=== PATIENT | male | born 1945 | race Caucasian/White ===

== ENCOUNTER 2020-05-14 23:06 | Emergency (ER) | payer MEDICARE ==
[2020-05-14] MEDS ORDERED: Amoxicillin/Potassium Clav 875 MG TAB ONE (23:26)
== END 2020-05-14 23:32 | disposition home or self-care (01) ==
LOC: BURERS 23:06
DX: H60.92 Unspecified otitis externa, left ear (principal); I10 Essential (primary) hypertension; E11.9 Type 2 diabetes mellitus without complications; Z79.4 Long term (current) use of insulin; Z79.899 Other long term (current) drug therapy
CPT/HCPCS: 99282